=== PATIENT | female | born 1985 | race Two or more races ===

== ENCOUNTER 2018-07-20 17:55 | Emergency (ER) | payer MEDICAID ==
[~2018-07-20] VITALS: Ht 152.4 cm; Wt 84.1 kg
[2018-07-20 18:00] VITALS: Ht 152.4 cm; Wt 84.1 kg
[2018-07-20 19:54] LABS: BASOPHILS 0.2 % (0-2); EOSINOPHILS 0.4 % (0-7); HEMATOCRIT 34.2 % (36.0-48.0); IMMATURE GRANULOCYTES 0.4 % (0-5); LYMPHOCYTES 16.1 % (15-50); MCH 29.3 pg (26.0-34.0); MCHC 35.1 g/dL (31.0-37.0); MCV 83.6 fL (80.0-100.0); MEAN PLATELET VOLUME 11.1 fL (7.4-10.4); MONOCYTES 3.7 % (2-11); NEUTROPHILS 79.2 % (40-80); PLATELET COUNT 236 10x3/uL (130-400); RBC 4.09 10x6/uL (4.00-5.40); RDW 13.5 % (11.5-14.5)
[2018-07-20 20:16] LABS: APPEARANCE HAZY (CLEAR); BILIRUBIN NEGATIVE (NEGATIVE); COLOR DK YELLOW (YELLOW); GLUCOSE NEGATIVE (NEGATIVE); KETONE LARGE mg/dL (NEGATIVE); NITRITE NEGATIVE (NEGATIVE); PROTEIN 1+ mg/dL (NEGATIVE); RED CELLS - URINE 0-5 /hpf (0-5); SPECIFIC GRAVITY 1.015 (1.005-1.020); UROBILINOGEN NORMAL (NORMAL); WHITE CELLS - URINE 0-5 /hpf (0-5)
[2018-07-20 20:17] LABS: BACTERIA MODERATE /hpf (NONE SEEN)
[2018-07-20 20:23] LABS: ALBUMIN 3.3 g/dL (3.4-5.0); ALKALINE PHOSPHATASE 64 U/L (46-116); ALT (SGPT) 18 U/L (10-68); BILIRUBIN - TOTAL 0.33 mg/dL (0.2-1.3); CALC OSMOLALITY 272 mosm/kg (275-300); CARBON DIOXIDE 22.1 mmol/L (21.0-32.0); CHLORIDE - SERUM 100 mmol/L (98-107); CREATININE - SERUM 0.6 mg/dL (0.6-1.3); GLUCOSE 117 mg/dL (74-106); POTASSIUM - SERUM 3.4 mmol/L (3.5-5.1); PROTEIN - SERUM 7.4 g/dL (6.4-8.2); SODIUM 137 mmol/L (136-145); UREA NITROGEN 6 mg/dL (7-18); eGFR NON AFRICAN AMERICAN > 90 mL/min (90-120)
[2018-07-20 20:57] VITALS: BP 108/74
[2018-07-20] MEDS ORDERED: ZOFRAN ODT4 MG/UDTAB PO (20:57)
[2018-07-20] MEDS ORDERED: KEFLEX500 MG PO (20:57)
== END 2018-07-20 20:57 | disposition home or self-care (01) ==
LOC: D.ER 17:55
PROVIDERS: Family Medicine
DX: N39.0 Urinary tract infection, site not specified (principal); R11.0 Nausea

== ENCOUNTER → 2018-10-01 11:05 | Outpatient (CLI) | payer MEDICAID ==
[2018-07-20 18:00] VITALS: BMI 36.2
[~2018-10-01 11:05] MED LIST: KEFLEX500 MG PO; ZOFRAN ODT4 MG/UDTAB PO
[2018-10-01 11:55] LABS: PROTEIN - URINE 17.9 mg/dL (0.0-11.9)
== END | disposition home or self-care (01) ==
LOC: D.LDO 11:05
PROVIDERS: Obstetrics & Gynecology
DX: O12.10 Gestational proteinuria, unspecified trimester (principal); Z3A.00 Weeks of gestation of pregnancy not specified

== ENCOUNTER 2018-11-03 13:20 | Outpatient (CLI) | payer MEDICAID ==
[2018-07-20 18:00] VITALS: BMI 36.2
[2018-11-03] MEDS ORDERED: NORMODYNE / TR200 MG ×2 (13:37→13:38)
[2018-11-03] MEDS ORDERED: NORMODYNE / TR200 MG PO (13:39)
[2018-11-03 13:57] LABS: BASOPHILS 0.2 % (0-2); EOSINOPHILS 1.4 % (0-7); HEMATOCRIT 32.6 % (36.0-48.0); IMMATURE GRANULOCYTES 0.7 % (0-5); MCH 28.1 pg (26.0-34.0); MCHC 33.7 g/dL (31.0-37.0); MCV 83.4 fL (80.0-100.0); MEAN PLATELET VOLUME 11.1 fL (7.4-10.4); MONOCYTES 6.9 % (2-11); NEUTROPHILS 69.8 % (40-80); PLATELET COUNT 263 10x3/uL (130-400); RBC 3.91 10x6/uL (4.00-5.40); RDW 13.3 % (11.5-14.5); WBC 10.2 10x3/uL (4.8-10.8)
[2018-11-03 14:10] LABS: ALBUMIN 2.3 g/dL (3.4-5.0); ALKALINE PHOSPHATASE 102 U/L (46-116); ALT (SGPT) 9 U/L (10-68); BILIRUBIN - TOTAL 0.16 mg/dL (0.2-1.3); CALC OSMOLALITY 272 mosm/kg (275-300); CALCIUM 9.2 mg/dL (8.5-10.1); CARBON DIOXIDE 21.1 mmol/L (21.0-32.0); CHLORIDE - SERUM 104 mmol/L (98-107); CREATININE - SERUM 0.5 mg/dL (0.6-1.3); GLUCOSE 82 mg/dL (74-106); POTASSIUM - SERUM 3.6 mmol/L (3.5-5.1); PROTEIN - SERUM 6.7 g/dL (6.4-8.2); SODIUM 138 mmol/L (136-145); UREA NITROGEN 8 mg/dL (7-18); eGFR NON AFRICAN AMERICAN > 90 mL/min (90-120)
[2018-11-03] MEDS ORDERED: PROZAC20 MG PO (19:20)
[2018-11-03] MEDS ORDERED: KLONOPIN1 MG PO (19:20)
[2018-11-04 10:55] LABS: HEMATOCRIT 37.8 % (36.0-48.0); HEMOGLOBIN 12.8 g/dL (12-16); MCH 28.5 pg (26.0-34.0); MCHC 33.9 g/dL (31.0-37.0); MCV 84.2 fL (80.0-100.0); MEAN PLATELET VOLUME 11.7 fL (7.4-10.4); RBC 4.49 10x6/uL (4.00-5.40); RDW 13.6 % (11.5-14.5); WBC 9.3 10x3/uL (4.8-10.8)
[2018-11-04 11:23] LABS: CALC OSMOLALITY 271 mosm/kg (275-300); CREATININE - SERUM 0.6 mg/dL (0.6-1.3); GLUCOSE 100 mg/dL (74-106); POTASSIUM - SERUM 3.8 mmol/L (3.5-5.1); SODIUM 137 mmol/L (136-145); UREA NITROGEN 8 mg/dL (7-18); eGFR NON AFRICAN AMERICAN > 90 mL/min (90-120)
[2018-11-04 11:24] LABS: CALCIUM 8.7 mg/dL (8.5-10.1); CARBON DIOXIDE 19.3 mmol/L (21.0-32.0); CHLORIDE - SERUM 103 mmol/L (98-107); URIC ACID 3.4 mg/dL (2.6-7.2)
--- NOTE | 2018-11-04 15:07 | CN ---
PATIENT NAME:GEORGINA MAI MEDICAL RECORD: [id number] : 81 LOCATION:[facility] AD[facility] DATE: ACCOUNT: [id number] CONSULTING PHYSICIAN: ANNABELLE FINN MD REFERRING PHYSICIAN: LORETTA SHORT MD DATE OF CONSULTATION: 11/03/2018 REASON FOR CONSULTATION: Pulmonary nodule. HISTORY OF PRESENT ILLNESS: Ms. Mai is a 33-year-old female who is speaking very little [place]. The history was taken by the help of her daughter. She was seen in Dr. Short's office today. The patient's blood pressure was high and sent to the hospital for blood pressure management. She had a chest radiograph which showed 1.7-cm nodule in the left mid lung area. Denies any coughing. No sputum production. Denies any exposure to TB. She is 31 weeks' . REVIEW OF THE SYSTEMS: Mainly in the history of present illness. PAST MEDICAL HISTORY: 1. Hypertension. 2. Migraine headache. 3. Currently, she is . ALLERGIES: There is no known drug allergy. MEDICATIONS: [employer] was reviewed. PERSONAL AND SOCIAL HISTORY: The patient is nonsmoker and nondrinker. FAMILY HISTORY: Noncontributory. PHYSICAL EXAMINATION: GENERAL: Now, the patient is lying comfortably in bed. She is not in acute distress. VITAL SIGNS: The blood pressure is 159/91, pulse is 84, and respiration is 20. HEENT: Conjunctivae are pink. Sclerae are not icteric. NECK: Neck is supple. No JVD. CHEST: The chest excursion is minimal on both sides. There is no wheeze and no rale. HEART: Rhythm regular. Normal sound. No murmur. ABDOMEN: Abdomen is soft. Bowel sounds present. No hepatosplenomegaly. She is 31 weeks' . RECTAL: Deferred. EXTREMITIES: No cyanosis. No clubbing. No pedal edema. CENTRAL NERVOUS SYSTEM: The patient is awake and alert. There is no obvious cranial nerve abnormality. The gait is not tested. LABORATORIES: Chemistry; sodium 138, potassium 3.6, BUN is 8, and creatinine 0.5. WBC 10.2, hemoglobin 11, hematocrit 32.6, and platelet count is 263. DIAGNOSTIC DATA: Chest radiograph; there is 1.7-cm nodule in the left mid lung area. There is no acute infiltrate. IMPRESSION: CONSULT REPORT [id number] GEORGINA MAI 1. Pulmonary nodule. Rule out malignant process. Rule out sarcoidosis. Rule out fungal infection. I will doubt TB. 2. Hypertension, uncontrolled. 3. A 31-week . 4. Migraine headache. RECOMMENDATION: 1. I will check CHRIS level, fungal serology, and TB Gold test. 2. I will recommend CT scan of the chest post-baby , and if indicated, we will do the PET scan. Follow up with me after the of the baby. I discussed with nurses in length. Dr. Short, thank you for involving me in the care of Ms. Mai. TRANSINT:[id number] Voice Confirmation ID: [id number] DOCUMENT ID: [id number] ANNABELLE FINN MD at 1507 CC: LORETTA SHORT MD [id number] DICTATION DATE: 11/03/18 183 PIPER HELPER: 11/03/18 190 DEP CLI 11/04/18 [facility] [address] [place] [address]
[2018-11-08 16:11] LABS: FUNGAL - ASP FLAVUS Negative (Neg:<1:1); FUNGAL - ASP NIGER Negative (Neg:<1:1); FUNGAL - ASPER FUMIGATUS Negative (Neg:<1:1)
== END 2018-11-04 12:11 | disposition other institution (70) ==
LOC: D.LDO 13:20 → D.LD 15:56 → D.LDO 11-04 12:11
PROVIDERS: Internal Medicine Pulmonary Disease; Obstetrics & Gynecology
DX: O26.899 Other specified pregnancy related conditions, unspecified trimester (principal); Z3A.00 Weeks of gestation of pregnancy not specified

== ENCOUNTER → 2020-03-20 06:59 | Outpatient (CLI) | payer SELFPAY ==
[2018-07-20 18:00] VITALS: BMI 36.2
[~2020-03-20 06:59] MED LIST changes: +KLONOPIN1 MG PO; +NORMODYNE / TR200 MG; +NORMODYNE / TR200 MG PO; +PROZAC20 MG PO
[2020-03-20 07:33] LABS: CALC OSMOLALITY 274 mosm/kg (275-300); CALCIUM 8.3 mg/dL (8.5-10.1); CARBON DIOXIDE 23.8 mmol/L (21.0-32.0); CHLORIDE - SERUM 101 mmol/L (98-107); CHOL - HDL RATIO 3.6 ratio (2.3-4.1); CHOLESTEROL, TOTAL 217 mg/dL (0-200); CREATININE - SERUM 0.6 mg/dL (0.6-1.3); GLUCOSE 127 mg/dL (74-106); HDL CHOLESTEROL 61 mg/dL (32-96); LDL CHOLESTEROL 127 mg/dL (0-100); LDL-HDL RATIO 2.1 ratio (1.5-3.5); POTASSIUM - SERUM 3.1 mmol/L (3.5-5.1); SODIUM 137 mmol/L (136-145); TRIGLYCERIDE 147 mg/dL (30-200); UREA NITROGEN 9 mg/dL (7-18); eGFR NON AFRICAN AMERICAN > 90 mL/min (90-120)
== END | disposition home or self-care (01) ==
LOC: D.LAB 06:59
DX: R03.0 Elevated blood-pressure reading, without diagnosis of hypertension (principal); E78.5 Hyperlipidemia, unspecified